=== PATIENT | male | born 1955 | race Caucasian/White ===

== ENCOUNTER 2021-08-17 10:42 | Emergency (ER) | payer OTHER, SELFPAY ==
[2021-08-17] VITALS (9 sets, daily range): BP systolic 96–118; BP diastolic 57–62; PULSE 59–66; RESP 18; TEMP 36.9; O2SAT 97–100
[2021-08-17 11:30] LABS: Hematocrit 23.8 % (41-53); Hemoglobin 7.8 g/dL (13.5-17.5); Mean Corpuscular HGB Conc 32.8 % (30-36); Mean Corpuscular Hemoglobin 30.9 PG (26-34); Mean Corpuscular Volume 94.3 fL (80-100); Platelet Count 142 X10^3/uL (150-400); Red Blood Cell Count 2.52 X10^6/uL (4.5-5.9); White Blood Cell Count 12.3 X10^3/uL (4.5-11.0)
[2021-08-17 11:31] LABS: Add Manual Diff / Slide Review YES
[2021-08-17 11:38] LABS: INR 1.5 (0.9-1.3); Prothrombin Time 17.3 SECONDS (10.1-12.7)
[2021-08-17 11:41] LABS: PTT Partial Thromboplastin Tim 29 SECONDS (26.4-36.2)
[2021-08-17 11:54] LABS: Alanine Aminotransferase 39 IU/L (<50); Albumin 2.9 g/dL (3.5-5.0); Albumin Globulin Ratio 1.2 (1.0-2.8); Alkaline Phosphatase 148 U/L (38-126); Aspartate Aminotransferase 36 IU/L (17-59); Bilirubin Total 0.2 mg/dL (0.2-1.3); Blood Urea Nitrogen 13 mg/dL (9-20); Calcium 8.1 mg/dL (8.4-10.2); Carbon Dioxide 27 mmol/L (22-32); Chloride 100 mmol/L (98-107); Estimated Glomerular Filt Rate > 60.0 mL/min (>60); Globulin 2.5 g/dL (1.7-4.1); Glucose 114 mg/dL (80-110); HEMOLYSIS < 15 (0-50); Potassium 3.8 mmol/L (3.4-5.1); Sodium 133 mmol/L (137-145); Total Protein 5.4 g/dL (6.3-8.2)
[2021-08-17 12:02] LABS: Neutrophils Absolute Manual 10086 /uL (3000-5900); Total Cells Counted 100
[2021-08-17 12:17] LABS: Anisocytosis 1+
[2021-08-17 12:26] LABS: Polychromasia 1+
[2021-08-17 12:35] LABS: Dohle Bodies 1+
--- NOTE | 2021-08-17 13:14 | DI.US.S_ITS ---
PROCEDURE: US ABDOMEN LIMITED INDICATIONS: ASCITIES; SURI SKIN FOR PARA TECHNIQUE: Real-time focused scanning was performed of the abdomen, with image documentation. COMPARISON: None. FINDINGS: There is a [id number] amount of ascites. The largest pocket is in the right lower quadrant. Skin entry site was marked for paracentesis. IMPRESSION: Moderate to large amount of ascites. Dictated by: Malini Cerda M.D. on 08/17/2021 at 14:07 Approved by: Malini Cerda M.D. on 08/17/2021 at 14:08
--- NOTE | 2021-08-17 15:56 | ED_ITS ---
HPI - Abdominal Pain General Chief Complaint: Abdominal Pain Stated Complaint: Pancreatic cancer- Needs fluid drained Time Seen by Provider: 08/17/21 14:28 Source: patient Mode of arrival: Ambulatory Limitations: no limitations History of Present Illness HPI narrative: Patient is a 65-year-old male who has terminal pancreatic cancer gets recurrent ascites and needs frequent paracentesis. He is currently visiting from [place] he has paracentesis scheduled for next week however is been 12 days since his last and he usually gets it every 10 days. His abdomen has become more distended he is having more shortness of breath it is now in the emergency department for drainage. He denies any fever or chills. Related Data Allergies Allergy/AdvReac Type Severity Reaction Status Date / Time No Known Drug Allergies Allergy Verified 08/17/21 11:00 Review of Systems Review of Systems Narrative: GENERAL: Denies chills, fatigue, malaise, fever, sweats, travel HEENT: Denies sinus pain, ear pain, sore throat, difficulty swallowing, neck pain RESPIRATORY: Denies dyspnea, cough, wheezing, hemoptysis, sputum. CARDIOVASCULAR: Denies chest pain, palpitations, orthopnea, edema GASTROINTESTINAL: See HPI : Denies dysuria, frequency, incontinence, hematuria, urinary retention, flank pain. MUSCULOSKELETAL: Denies weakness, joint pain, or bony pain SKIN: No rash, no erythema, no pruritus NEUROLOGIC: Denies weakness, dizziness, headache, numbness, change in speech, confusion PSYCHIATRIC: No concerning psychosocial issues. 12 point review of systems is negative except for those stated above and HPI Patient History Medical History (Updated 08/17/21 @ 16:33 by Lacy Cronin DO) Ascites Pancreatic cancer Social History Smoking Status: Never smoker Smoking Status: Never smoker alcohol intake frequency: 0-2 drinks per day Substance Use Type: does not use Exam Initial Vital Signs Initial Vital Signs: Vital Signs Temperature 98.4 F 08/17/21 10:55 Pulse Rate 66 08/17/21 10:55 Respiratory Rate 18 08/17/21 10:55 Blood Pressure 118/58 L 08/17/21 10:55 Pulse Oximetry 99 08/17/21 10:55 GENERAL: Alert chronically ill 65-year-old male in no acute distress. HEENT: Head atraumatic,EOMI, pupils reactive, face symmetric, moist mucous membranes CARDIOVASCULAR: Regular rate and rhythm without murmurs, rubs or gallops. RESPIRATORY: Breath sounds equal bilaterally, no wheezes rales or rhonchi. ABDOMEN: Soft, distended, positive fluid wave no guarding or rebound no erythema EXTREMITIES: Normal range of motion, no clubbing or edema. Neurovascularly intact NEUROLOGICAL: Alert and oriented x4. SKIN: Warm, dry, no laceration, no petechiae, no rashes or lesions. Procedures Paracentesis Indication: Ascites Procedure: therapeutic paracentesis Location: LLQ Local Anesthetic: lidocaine 1% Amount of anesthesia used (mL): 4 Bedside Ultrasound Used: yes, Ascites confirmed and location marked Amount of fluid obtained (mL): 3,200 Fluid: clear Post Procedure Exam: awake, alert, normal BP, normal HR and normal SpO2 Patient Tolerated Procedure: Well Additional Comments: 1st attempt initially was successful but then quickly was no longer draining. So a 2nd attempt was made at was successful and drained easily. Course Orders Ordered: ED Orders 08/17/21 11:19 CBC Auto Diff [Complete Blood Count AUTO DIFF] Stat CMP [Comprehensive Metabolic Panel] Stat PT [Prothrombin Time INR] Stat PTT [Partial Thromboplastin Time] Stat 08/17/21 13:14 US abdomen limited Stat Vital Signs Vital signs: Vital Signs - 8 hr 08/17/21 15:21 08/17/21 15:22 08/17/21 15:38 Pulse Rate 61 61 61 Blood Pressure 97/60 97/60 Pulse Oximetry 97 98 100 08/17/21 15:39 08/17/21 15:45 08/17/21 16:00 Pulse Rate 61 60 60 Blood Pressure 96/57 L 96/58 L 96/59 L Pulse Oximetry 100 100 100 08/17/21 16:15 08/17/21 16:30 Pulse Rate 63 59 L Blood Pressure 101/62 98/57 L Pulse Oximetry 99 99 MDM - Abdominal Pain Lab Data Result diagrams: 08/17/21 11:19 08/17/21 11:19 Labs: Lab Results 08/17/21 08/17/21 08/17/21 Range/Units 11:19 11:19 11:19 WBC 12.3 H (4.5-11.0) X10^3/uL RBC 2.52 L (4.5-5.9) X10^6/uL Hgb 7.8 L (13.5-17.5) g/dL Hct 23.8 L (41-53) % MCV 94.3 (80-100) fL MCH 30.9 (26-34) PG MCHC 32.8 (30-36) % RDW 18.0 H (11.6-14.8) % Plt Count 142 L (150-400) X10^3/uL Neut % (Auto) Not Reportable Lymph % (Auto) Not Reportable [place] % (Auto) Not Reportable Eos % (Auto) Not Reportable Baso % (Auto) Not Reportable Lymph # (Auto) Not Reportable [place] # (Auto) Not Reportable Baso # (Auto) Not Reportable Total Counted 100 Seg Neutrophils % 57.0 (38-70) % Band Neutrophils % 25.0 H (3-7) % Lymphocytes % (Manual) 6.0 L (25-45) % Monocytes % (Manual) 7.0 (2-11) % Eosinophils % (Manual) 1.0 L (2-4) % Basophils % (Manual) 1.0 (0-1) % Metamyelocytes % 2.0 H (-0) % Myelocytes % 1.0 H (-0) % Neutrophils # (Manual) 77867 H (0592-5106) /uL Dohle Bodies 1+ H RBC Morphology See below Polychromasia 1+ H Anisocytosis 1+ H PT 17.3 H (10.1-12.7) SECONDS INR 1.5 H (0.9-1.3) APTT 29 (26.4-36.2) SECONDS Sodium 133 L (137-145) mmol/L Potassium 3.8 (3.4-5.1) mmol/L Chloride 100 (98-107) mmol/L Carbon Dioxide 27 (22-32) mmol/L BUN 13 (9-20) mg/dL Creatinine 1.18 (0.66-1.25) mg/dL Estimated GFR > 60.0 (>60) mL/min BUN/Creatinine Ratio 11.0 (6-22) Glucose 114 H (80-110) mg/dL Calcium 8.1 L (8.4-10.2) mg/dL Total Bilirubin 0.2 (0.2-1.3) mg/dL AST 36 (17-59) IU/L ALT 39 (<50) IU/L Alkaline Phosphatase 148 H (38-126) U/L Total Protein 5.4 L (6.3-8.2) g/dL Albumin 2.9 L (3.5-5.0) g/dL Globulin 2.5 (1.7-4.1) g/dL Albumin/Globulin Ratio 1.2 (1.0-2.8) MDM Narrative Medical decision making narrative: Patient has recurrent ascites secondary to pancreatic cancer. He has a therapeutic paracentesis in the emergency department no contraindications. Small complication all 1st attempt was unsuccessful catheter was not advanced car in a it stopped draining. A 2nd attempt was successful in easily drained. The patient has appointment next week in [place] for repeat paracentesis. Discharge Plan Departure Patient Disposition: Home Clinical Impression: Abdominal ascites, Pancreatic cancer Instructions: DI for Abdominal Paracentesis Activity Restrictions/Additional Instructions: Thank you so much for your patients today. I hope you enjoy the rest of your trip. You had 3.2 L removed from her abdomen today. Please follow-up with her doctors in [place] for further treatments Please continue medications as previously prescribed Please return to emergency department if you should have any fever, increased pain, shortness of breath or new or worsening symptoms
== END 2021-08-17 16:46 | disposition home or self-care (01) ==
PROVIDERS: Emergency Provider Emergency Medicine
DX: R18.8 Other ascites (principal); C25.9 Malignant neoplasm of pancreas, unspecified
CPT/HCPCS: 36415; 49083; 76705; 80053; 85007; 85025; 85610; 85730; 99284